=== PATIENT | female | born 2000 | race Two or more races ===

== ENCOUNTER 2020-02-03 12:24 | Outpatient (CLI) | payer OTHER, SELFPAY ==
[2020-02-03 13:48] LABS: Thyroid Stimulating Hormone 0.693 uIU/mL (0.465-4.680)
[2020-02-03 13:56] LABS: Free T4 Free Thyroxine 1.05 ng/mL (0.78-2.19)
[2020-02-06 13:34] LABS: FSH 7.4 mIU/mL (***); LH 5.6 mIU/mL (***); Progesterone <0.2 ng/mL (***)
== END 2020-02-03 12:25 | disposition home or self-care (01) ==
PROVIDERS: PCP Family Medicine; Visit Provider Obstetrics & Gynecology
DX: N92.6 Irregular menstruation, unspecified (principal)
CPT/HCPCS: 36415; 83001; 83002; 84144; 84439; 84443

== ENCOUNTER 2020-02-10 14:00 | Outpatient (CLI) | payer OTHER, SELFPAY ==
--- NOTE | ~2020-02-10 | US_ITS ---
EXAMINATION: US pelvic complete w TV DATE: 02/10/2020 15:08 INDICATION: Irregular menstrual cycle. Comparison:No prior studies for comparison. TECHNIQUE: Multiple transabdominal and endovaginal sonographic images of the pelvis performed. FINDINGS: The uterus measures 7.5 x 4.3 x 5.6 cm. The endometrial complex measures 7 mm. The right ovary measures 3.4 x 2.3 x 2 cm and the left ovary measures 2.5 x 1.6 x 1.2 cm. There are small follicles in each ovary. There are right ovarian cysts, largest measuring 2 cm. There is no free fluid in the pelvis. There are no abnormal masses seen on either side. IMPRESSION: 1. Right ovarian cysts, largest measuring 2 cm. Reviewed, dictated and finalized at location A.
== END 2020-02-10 14:01 | disposition home or self-care (01) ==
PROVIDERS: PCP Family Medicine; Visit Provider Obstetrics & Gynecology
DX: N92.6 Irregular menstruation, unspecified (principal); N83.201 Unspecified ovarian cyst, right side
CPT/HCPCS: 76830; 76856

== ENCOUNTER 2020-08-30 14:44 | Outpatient (CLI) | payer OTHER, SELFPAY ==
--- NOTE | ~2020-08-30 | US_ITS ---
EXAMINATION: US OB <= 14 weeks fetus DATE: 08/30/2020 15:12 INDICATION: Acid heart tones during first trimester TECHNIQUE: Real-time pelvic transabdominal and transvaginal ultrasound was performed. COMPARISON: 08/10/2020 FINDINGS: The uterus measures 10.2 x 7.9 x 6.3 cm. There is an intrauterine gestational sac. A yolk sac is identified. heart motion is identified measuring 171 beats per minute (bpm) by M-mode Do ppler. The crown rump length measures 3.9 cm , which correlates with an estimated gestational a ge of 10 weeks and 6 day(s) (+/-) 7 day(s). The ovaries are not visualized however no adnexal abnormality is seen. There is no free fluid in the pelvis. IMPRESSION: 1. Live intrauterine with an estimated gestational age of 10 weeks and 6 day(s) (+/-) 7 day (s) and an estimated delivery date of 03/22/2021. Reviewed, dictated and finalized at location A. IMPRESSION: 1. Live intrauterine with an estimated gestational age of 10 weeks an d 6 day(s) (+/-) 7 day(s) and an estimated delivery date of 03/22/2021.
[2020-08-30 15:47] LABS: Basophils Percent Auto 0.3 % (0.2-1.2); Eosinophils Absolute Auto 0.1 K/mm3 (0-0.3); Eosinophils Percent Auto 2.2 % (0-4.4); Hemoglobin 12.8 g/dL (12.0-15.0); Immature Granulocyte Absolute 0.02 K/mm3 (0.00-0.031); Immature Granulocyte Percent A 0.3 % (0-0.5); Lymphocytes Absolute Auto 2.45 K/mm3 (0.9-3.2); Lymphocytes Percent Auto 37.8 % (18.3-44.2); Mean Corpuscular HGB Conc 34.6 g/dl (32-36); Mean Corpuscular Hemoglobin 31.3 pg (26-34); Mean Corpuscular Volume 90.5 fl (80-100); Mean Platelet Volume 10.7 fl (7.4-10.4); Monocytes Absolute Auto 0.4 K/mm3 (0.1-0.6); Neutrophils Absolute Auto 3.5 K/mm3 (1.3-6.7); Neutrophils Percent Auto 53.4 % (45.5-73.1); Platelet Count Result 173 k/mm3 (150-375); Red Blood Count 4.09 M/mm3 (4.2-5.4); Red Cell Distribution Width 13.4 % (11.5-14.5); White Blood Count 6.5 K/mm3 (4.5-10.0)
[2020-08-30 15:59] LABS: Add Urine Microscopic? YES; Appearance Urine Clear (Clear); Bacteria Urine Trace /hpf; Bilirubin Urine Negative (Negative); Blood Urine Negative (Negative); Color Urine Yellow (Yellow); Glucose Urine UA Negative (Negative); Ketones Urine Negative (Negative); Leukocyte Esterase Ur Negative LEU/UL (NEGATIVE); Mucus Urine Rare /lpf; Nitrate Urine Negative (Negative); Protein Urine 1+ mg/dL (Negative); RBC Urine 0-2 /hpf (0-2); Specific Grav Ur 1.019 (1.001-1.035); Squamous Epithelial Cell Urine Moderate /hpf (Few); Urobilinogen Urine Negative mg/dL (<2.0); WBC Urine 0-3 /hpf (0-3)
[2020-08-30 16:27] LABS: Thyroid Stimulating Hormone 0.602 uIU/mL (0.465-4.680)
[2020-08-30 18:49] LABS: Vitamin D 25 Hydroxy 14.2 ng/mL
[2020-08-30 19:13] LABS: Hepatitis B Surface Antigen Negative (Negative)
[2020-08-30 19:16] LABS: HIV 1/2 Ab P24 Ag Result Negative (Negative)
[2020-08-30 19:26] LABS: Hepatitis C Virus Antibody Negative (Negative)
[2020-08-30 19:36] LABS: Rubella IgG Antibody > 120.0 IU/ML
[2020-08-31 10:35] LABS: Rapid Plasma Reagin Non-Reactive (NonReactive)
[2020-09-01 21:38] LABS: Hematocrit 37.4 % (35.0-45.0); Hemoglobin 12.8 g/dL (11.7-15.5); MCH 31.9 pg (27.0-33.0); RDW 14.7 % (11.0-15.0); Red Blood Cell Count 4.02 Mill/uL (3.80-5.10)
[2020-09-02 12:20] LABS: Varicella IgG Antibody <135.00 Index (>=165.00)
[2020-09-06 18:29] LABS: CF Result NEGATIVE (NEGATIVE); Ethnicity NG
== END 2020-08-30 14:45 | disposition home or self-care (01) ==
LOC: ANHIMG 14:47
PROVIDERS: PCP Family Medicine; Visit Provider Obstetrics & Gynecology
DX: O26.851 Spotting complicating pregnancy, first trimester (principal); O20.0 Threatened abortion; Z3A.10 10 weeks gestation of pregnancy
CPT/HCPCS: 36415; 76801; 81001; 81220; 81243; 82306; 83021; 84443; 85025; 86592; 86703; 86762; 86787; 86803; 86850; 86900; 86901; 87086; 87088; 87340; G0432

== ENCOUNTER 2020-09-24 12:30 | Outpatient (RCR) | payer OTHER, SELFPAY ==
--- NOTE | 2020-09-16 13:43 | PTOPEVAL ---
PHYSICAL THERAPY EVALUATION AND PLAN OF CARE Thank you for referring Emerita Mcintosh to [facility].? The patient is scheduled to be seen for therapy? 1x/week for 3 weeks. Please review, sign, date and return this plan of care TD. I agree with and certify that the following plan of care is medically necessary. Referring Physician Date Attending Provider: Mk Quick MD Evaluation Diagnosis back pain with sciatica Onset 2015 Subjective Information States that she has been Query Text:As Reported By Patient/ having back problems since Family having her first child in 2016 after the epidural. She has back pain that starts from where the epidural was and then goes down the right let with occasional episodes down the left leg. Was initially going to get x-rays, but found out she is and was not able to get the tests. Self Report Pain Assessment Right Back Reported Pain Level 4 Pain Description Aching Pain Frequency Chronic,Intermittent Lowest Pain Intensity 0 Greatest Pain Intensity 7 Other Pain Aggravating Factors waking/getting out of bed; cold/bad weather Pain Score Pain Score 4: Self Report Interventions Used Interventions Used By Clinicians Exercise Pain Relief Interventions Used By Heat,Ice,Medication Patient Cervical and Lumbar ROM Lumbar ROM Lumbar Flexion (0-90) 55 Query Text:Active in Degrees Lateral Rotation Right (0-45) 20 Query Text:Active in Degrees Lateral Rotation Left (0-45) 20 Query Text:Active in Degrees Lumbar Comments abberent movements noted with all motions; lumbar extension hinging at L2 with minimal motion noted from L2-S1 Lower Extremity Range of Motion General Lower Extremity Range of Motion Gross Lower Extremity Range of Motion generally WNL; right hip IR: Comments 75deg, Ext. rot: 25 left hip IR: 65deg, ext. rot. 35 Lower Extremity Muscle Strength Testing Hip Strength Left Hip Flexion Strength 4- Good - Hip Extension Strength 3- Fair - Hip Abduction Strength 4- Good - Hip Medial Rotation Strength 3+ Fair + Hip Lateral Rotation Strength 3+ Fair + Right Hip Flexion Strength 3 Fair Hip Extension Strength 3 Fair Hip Abduction Strength
--- NOTE | 2020-09-24 12:34 | PCPTNOTE ---
Patient called & cancelled scheduled appointment this date due to not feeling well.
--- NOTE | 2020-10-01 12:53 | PCPTNOTE ---
Patient did not show up for scheduled appointment this date. Called, spoke with Pt, she stated to have forgotten about her appointment. Reminded Pt of upcoming appointment on 10/07/20 @16:30.
--- NOTE | 2020-10-07 17:00 | PCPTNOTE ---
Patient did not show up for scheduled appointment this date.
--- NOTE | 2020-10-13 10:40 | PCPTNOTE ---
PHYSICAL THERAPY DISCHARGE Attending Provider: Mk Quick MD Patient:Emerita Mcintosh Date of :2000 Patient has not returned for any further treatments since 09/16/20, therefore she will be discharged at this time. Patient?s initial visit was on 09/16/2020 and had a total of 1 visit (the evaluation). She no showed 3 appointments. Thank you for referring this patient to [facility]. Please review, sign, date and return this discharge summary TD. I have been updated about the patient's current status and I agree with discharge from the above service at this time. Referring Physician Date
== END 2020-10-14 17:13 | disposition home or self-care (01) ==
LOC: ANHPT 12:30
PROVIDERS: PCP Family Medicine; Visit Provider Obstetrics & Gynecology
DX: M54.30 Sciatica, unspecified side (principal)
CPT/HCPCS: 97161

== ENCOUNTER 2020-12-27 12:52 | Outpatient (CLI) | payer OTHER, SELFPAY ==
[2020-12-27 14:10] LABS: Basophils Percent Auto 0.2 % (0.2-1.2); Eosinophils Absolute Auto 0.2 K/mm3 (0-0.3); Eosinophils Percent Auto 2.2 % (0-4.4); Hematocrit 32.7 % (37.0-47.0); Immature Granulocyte Absolute 0.06 K/mm3 (0.00-0.031); Immature Granulocyte Percent A 0.7 % (0-0.5); Lymphocytes Absolute Auto 2.24 K/mm3 (0.9-3.2); Lymphocytes Percent Auto 27.3 % (18.3-44.2); Mean Corpuscular HGB Conc 33.6 g/dl (32-36); Mean Corpuscular Hemoglobin 31.3 pg (26-34); Mean Corpuscular Volume 92.9 fl (80-100); Mean Platelet Volume 10.3 fl (7.4-10.4); Monocytes Absolute Auto 0.5 K/mm3 (0.1-0.6); Neutrophils Absolute Auto 5.2 K/mm3 (1.3-6.7); Neutrophils Percent Auto 63.6 % (45.5-73.1); Platelet Count Result 170 k/mm3 (150-375); Red Blood Count 3.52 M/mm3 (4.2-5.4); Red Cell Distribution Width 12.5 % (11.5-14.5); White Blood Count 8.2 K/mm3 (4.5-10.0)
[2020-12-27 14:18] LABS: Glucose 1 Hour PP 50gm Dose 106 mg/dL
== END 2020-12-27 12:53 | disposition home or self-care (01) ==
LOC: ANHLAB 12:55
PROVIDERS: PCP Family Medicine; Visit Provider Obstetrics & Gynecology
DX: Z34.90 Encounter for supervision of normal pregnancy, unspecified, unspecified trimester (principal)
CPT/HCPCS: 36415; 82947; 85025

== ENCOUNTER 2021-01-27 14:31 | Outpatient (CLI) | payer OTHER, SELFPAY ==
[2021-01-27 14:55] LABS: Basophils Percent Auto 0.2 % (0.2-1.2); Eosinophils Absolute Auto 0.2 K/mm3 (0-0.3); Eosinophils Percent Auto 1.8 % (0-4.4); Hematocrit 31.4 % (37.0-47.0); Hemoglobin 10.5 g/dL (12.0-15.0); Immature Granulocyte Absolute 0.09 K/mm3 (0.00-0.031); Immature Granulocyte Percent A 0.9 % (0-0.5); Lymphocytes Absolute Auto 2.61 K/mm3 (0.9-3.2); Lymphocytes Percent Auto 26.8 % (18.3-44.2); Mean Corpuscular HGB Conc 33.4 g/dl (32-36); Mean Corpuscular Hemoglobin 30.9 pg (26-34); Mean Corpuscular Volume 92.4 fl (80-100); Mean Platelet Volume 10.9 fl (7.4-10.4); Monocytes Absolute Auto 0.7 K/mm3 (0.1-0.6); Monocytes Percent Auto 6.7 % (2.6-8.5); Neutrophils Absolute Auto 6.2 K/mm3 (1.3-6.7); Neutrophils Percent Auto 63.6 % (45.5-73.1); Platelet Count Result 166 k/mm3 (150-375); Red Cell Distribution Width 13.2 % (11.5-14.5); White Blood Count 9.7 K/mm3 (4.5-10.0)
[2021-01-27 16:02] LABS: HIV 1/2 Ab P24 Ag Result Negative (Negative)
[2021-01-28 11:52] LABS: Rapid Plasma Reagin Non-Reactive (NonReactive)
== END 2021-01-27 14:32 | disposition home or self-care (01) ==
PROVIDERS: PCP Family Medicine; Visit Provider Obstetrics & Gynecology
DX: Z34.90 Encounter for supervision of normal pregnancy, unspecified, unspecified trimester (principal)
CPT/HCPCS: 36415; 85025; 86592; 86703; G0432

== ENCOUNTER 2021-02-18 12:49 | Outpatient (RCR) | payer OTHER, SELFPAY ==
[2021-02-11 15:59] VITALS: BP 102/61; PULSE 95
--- NOTE | ~2021-02-18 | US_ITS ---
EXAMINATION: US OB limited EXAM DATE: 02/11/2021 16:02 INDICATION: LUIS - hx of abruption with last 3rd trimester. TECHNIQUE: Pelvic obstetrical transabdominal sonogram was performed by a technologist. There are mu ltiple grayscale and Doppler images available for interpretation. There are no earlier studies of th is gestation for comparison. FINDINGS: There is a single fetus identified in vertex presentation with a heart rate of 134 beats pe r minute. The placenta is located in the right position. There is no sonographic evidence of retropl acental hemorrhage identified. The amniotic fluid index is 10.1 centimeters, which is normal. IMPRESSION: 1. Single fetus in vertex presentation with heart rate 134 beats per minute. 2. Normal LUIS 10.0 cm. Reviewed, dictated and finalized at location A.
[2021-02-18 14:06] VITALS: BP 100/59; PULSE 97
== END 2021-04-28 09:26 | disposition home or self-care (01) ==
LOC: ANHOBOP 12:49
PROVIDERS: PCP Family Medicine; Visit Provider Student in an Organized Health Care Education/Training Program
DX: O09.293 Supervision of pregnancy with other poor reproductive or obstetric history, third trimester (principal); Z3A.33 33 weeks gestation of pregnancy; Z3A.34 34 weeks gestation of pregnancy
CPT/HCPCS: 59025; 76815

== ENCOUNTER 2021-03-18 03:44 | Inpatient (IN) | payer OTHER, SELFPAY ==
[2021-03-18] VITALS (15 sets, daily range): BP systolic 89–116; BP diastolic 41–74; PULSE 82–132; RESP 16–18; TEMP 36.4–36.6; O2SAT 98–100; BMI 28.6
--- NOTE | 2021-03-18 04:00 | LDADM ---
This patient, Emerita Mcintosh, was admitted to Labor/Delivery/Recovery 106 on 03/18/21 at 03:44. Plans for labor, pain management and were discussed with patient. Patient/family oriented to hospital policies and general routines including ID bracelet, bed and alarms, visiting hours, pain management, procedures, bathroom and other care routines, personal items, smoking policy, room service/diet and guest tray routines, infant security routines, and visiting hours. Patient/Family are encouraged to report perceived risks to care and to ask questions if they do not understand what they are told or what they should do. See OBIX for further documentation.
[2021-03-18 04:42] LABS: Basophils Percent Auto 0.2 % (0.2-1.2); Eosinophils Absolute Auto 0.1 K/mm3 (0-0.3); Eosinophils Percent Auto 0.6 % (0-4.4); Hematocrit 31.3 % (37.0-47.0); Hemoglobin 10.5 g/dL (12.0-15.0); Immature Granulocyte Absolute 0.05 K/mm3 (0.00-0.031); Immature Granulocyte Percent A 0.4 % (0-0.5); Lymphocytes Absolute Auto 2.77 K/mm3 (0.9-3.2); Lymphocytes Percent Auto 22.3 % (18.3-44.2); Mean Corpuscular HGB Conc 33.5 g/dl (32-36); Mean Corpuscular Hemoglobin 29.6 pg (26-34); Mean Corpuscular Volume 88.2 fl (80-100); Mean Platelet Volume 11.3 fl (7.4-10.4); Monocytes Percent Auto 8.4 % (2.6-8.5); Neutrophils Absolute Auto 8.5 K/mm3 (1.3-6.7); Neutrophils Percent Auto 68.1 % (45.5-73.1); Platelet Count Result 209 k/mm3 (150-375); Red Blood Count 3.55 M/mm3 (4.2-5.4); White Blood Count 12.4 K/mm3 (4.5-10.0)
--- NOTE | 2021-03-18 04:49 | PM.IMHP ---
H&P: HPI History of Present Illness Date/Time: 03/18/21 04:49 She is a with an edc 03/28/21 based on a 7 week ultrasound. IUP at 38 4/7 weeks admitted in active labor. She had SROM at approximately 330. Clear. When she arrived to [facility] she was actively liseth and . PNC significant for prior c section and prior successful . She desires CARLOS. Has been counseled regarding risk benefit of CARLOS vs repeat and she desires trial of labor. PNC significant for recent ultrasound finding of a redundant atrial septum which is a foramen ovale aneurysm. There was an occasional PAC noted, which is common. She has been counseled by MFM regarding finding and they recommended weekly testing and targeted ultrasound which testing has been reassuring. Adequate growth noted. Labs reviewed. GBS neg. Chief Complaint: Active labor. Review of Systems Review of Systems: All systems reviewed & are unremarkable except as noted in HPI and below Constitutional: Constitutional: Reports no additional constitutional complaints and Denies headache(s) Eyes: Eyes: Denies spots in vision ENT: Reports system reviewed and no additional complaints, except as documented and Denies headache(s) Cardiovascular: Cardiovascular: Denies chest pain and Denies dyspnea Respiratory: Respiratory: Denies dyspnea Gastrointestinal: Gastrointestinal: Reports no additional gastrointestinal complaints Genitourinary: Genitourinary: Reports amenorrhea Musculoskeletal: Musculoskeletal: Reports no additional musculoskeletal complaints Integumentary/Breasts: Skin/Breast: Denies breast mass and Denies rash Neurologic: Denies headache(s) Psychiatric: Psychiatric: Reports no additional psychiatric complaints [facility] Past Medical History Medical History Chlamydia Depression (vaginal after ) x1 Surgical History Surgical History Hx of tonsillectomy Previous section x1 [place] teeth removed Family History Family History Grandparent Family history of malignant neoplasm of ovary Family history of malignant neoplasm of breast Family history of malignant neoplasm of uterus Agent orange exposure Mother Endometriosis Father Scoliosis Social History Social History (Reviewed 12/02/21 @ 14:43 by ELVI Bah Smoking status: Never smoker Second hand tobacco smoke exposure: No Alcohol intake: never Substance use: never Substance use type: marijuana Spiritual care concerns: No Meds Home Medications and Allergies Home Medications Medication Instructions Recorded Confirmed Type prenat.vits,lenny,[id number] 1 tablet PO DAILY 08/30/20 03/04/21 History ferrous sulfate 325 mg (65 mg 325 mg PO DAILY #90 tablet 12/31/20 03/04/21 Rx iron) tablet Allergies Allergy/AdvReac Type Severity Reaction Status Date / Time No Known Allergies Allergy Verified 03/17/21 14:43 Exam Const: General: no acute distress Eyes: General: appearance normal, both eyes and all related structures Resp: Effort & Inspection: normal respiratory effort Cardio: Rate: regular rate GI: Other: Gravid no fundal tenderness no right upper quadrant pain : External Female Exam: normal external appearance Other: perineum normal cervix 6/80/-2 Skin: General skin exam: no rashes or lesions noted Neuro: Cognition (Neuro): normal cognition Extrem: General: normal to inspection Psych: Mental Status: mental status grossly normal H&P: Results Labs Labs: Short CBC 03/18/21 Range/Units 04:18 WBC 12.4 H (4.5-10.0) K/mm3 Hgb 10.5 L (12.0-15.0) g/dL Hct 31.3 L (37.0-47.0) % Plt Count 209 (150-375) k/mm3 Assessment and Plan Assessment and plan (1) Active labor at term: Statu
--- NOTE | 2021-03-18 05:41 | PM.OBPRVD ---
OB - Delivery Note Procedure Delivery date: 03/18/21 Procedure: Spontaneous vaginal delivery events: Previous Intrapartal events: None Induction method: none Delivery monitor: external FHT Route of delivery: Laceration Description: Superficial (superficial right labia minora, hemostatic no suture needed) Specimen: Yes (Placenta and cord) Quantitative Blood Loss (ml): 150 Anesthesia type: None Disposition: floor Complications: None Narrative: Patient admitted in active labor. She progressed spontaneously. heart tones were 130-140s, they were intermittently recorded on strip with her being in the hand knee and squatting position most of the labor. She had strong urge to push and delivered a female . Mouth and nose suctioned. Infant vigorously crying and placed on maternal abdomen. Cord was doubly clamped and cut. Placenta delivered intact and spontaneous. Small superior labia minora tear, hemostatic, no suture needed. Lower uterine segment cleared of clot, palpated intact. Patient tolerated procedure well. Baby Date of : 03/18/21 Time of : 05:18 Weeks of gestation at delivery: 38 Infant gender: Female Weight (pounds): 7 Weight (ounces): 2 presentation: vertex position: Right Occiput Anterior Placenta delivery description: Spontaneous cord vessel description: Delayed Cord Clamping (30 sec) score one minute: 8 score five minutes: 9
[2021-03-18] MEDS: IBUPROFEN 600 MG TABLET PO ×3 (06:20→21:21)
[2021-03-18 06:38] LABS: Rapid Plasma Reagin Non-Reactive (NonReactive)
[2021-03-18] MEDS: BENZOCAINE 20% AER SPR (*SP) 56 GM CAN 1 SPRAY TOPICAL (09:02)
[2021-03-18] MEDS: WITCH HAZEL 40 PADS 1 PAD TOPICAL (09:02)
--- NOTE | 2021-03-18 09:55 | OBPPTRN ---
0930-Patient transferred to post room #286 via wheelchair. Support person present. Oriented to unit, room, information board, rooming in, admission packet and security measures. Patient verbalizes understanding.
--- NOTE | 2021-03-18 11:30 | PC.NURSE ---
Consult with pt., mother reports is eagerly feeding with without issue. This is mother?s 3rd child to breastfeed. Requested mother call out next feeding for observation per policy. Reviewed feeding cues, frequencies, duration of feedings, feeding elimination flow sheet, and signs of adequate intake. Demonstrated stimulation techniques to wake for feeding. Reviewed signs of a correct latch, effective nursing and suck swallow ratio. Nipple care reviewed of lanolin after feedings and warm compresses as needed. Instructed feeding should be initiated three hours from start of last feeding or if feeding cues are noted before. Mother voiced understanding of information shared.
[2021-03-18] MEDS: MULTIVIT/MIN/PREN/FOL AC/IRON TABLET 1 TAB PO (12:41)
[2021-03-18] MEDS: ACETAMINOPHEN 325 MG TABLET 650 MG PO (17:46)
[2021-03-19 00:33] VITALS: BP 98/56; PULSE 80; RESP 16; TEMP 36.6; O2SAT 98
[2021-03-19 04:00] VITALS: BP 86/49; PULSE 80; RESP 16; TEMP 36.4; O2SAT 97
[2021-03-19] MEDS: WITCH HAZEL 40 PADS 1 PAD TOPICAL (04:15)
[2021-03-19] MEDS: IBUPROFEN 600 MG TABLET PO (04:15)
[2021-03-19 04:50] LABS: Hematocrit 28.5 % (37.0-47.0); Hemoglobin 9.6 g/dL (12.0-15.0)
--- NOTE | 2021-03-19 09:49 | P.PNOB_ITS ---
OB - PN: Subj Subjective Date/time seen: 03/19/21 09:49 No dizziness or lightheadedness, ambulating well. Patient comments: pain well controlled, tolerating diet and other (Decreasing lochia.) baby status: doing well and nursing well [place] feeding status: exclusively breast feeding OB - PN: Obj Data Labs CBC & Chem 7: 03/19/21 04:02 Labs: Laboratory Results - last 24 hr 03/19/21 04:02 Hgb 9.6 L Hct 28.5 L OB - PN A/P Plan day: 1 Plan: routine care Comments: Patient doing well. Asymptomatic anemia. Discharge home today. Discussed discharge instructions. Time Spent With Patient Time: Total time spent is greater than 50% in coordination of care (as documented) at patient's floor/unit and/or counseling patient: Exam Psych: Affect: normal affect Other: Abd: fundus firm below umbilicus, nontender labia/perineum- no swelling Ext: nontender
[2021-03-19 09:50] VITALS: BP 111/63; PULSE 88; RESP 12; TEMP 36.2; O2SAT 100
[2021-03-19] MEDS: POLYSACCHARIDE IRON COMPLEX 150 MG CAPSULE PO (09:50)
[2021-03-19] MEDS: ACETAMINOPHEN 325 MG TABLET 650 MG PO (09:50)
[2021-03-19] MEDS: MULTIVIT/MIN/PREN/FOL AC/IRON TABLET 1 TAB PO (09:50)
[2021-03-19] MEDS: DOCUSATE SODIUM 100 MG CAPSULE PO (09:50)
--- NOTE | 2021-03-19 09:52 | PM.OBDSVD ---
DS: Admitting Diagnosis Discharge Date Mar 19, 2021. Admitting Diagnosis Labor. DS: Discharge Diagnosis Discharge Diagnosis (1) Active labor at term: Status: Acute (2) , delivered, current hospitalization: Code(s): O34.219 - Maternal care for unspecified type scar from previous delivery Status: Acute OB - DS: Summary Hospital Course Hospital Course: Patient admitted in active labor. She progressed to complete. She had a successful . she did well. Ambulating without problems, adequate pain control, tolerating regular diet. Asymptomatic anemia. Baby doing well. well. OB Procedures : NST and Ultrasound OB Procedures Intrapartum: OB Procedures: : None Peripartum Data Infant Delivery Method: Natural Vaginal () Laceration Description: Labial and Superficial Episiotomy description: None complications: none Status at Discharge Functional status at discharge: independent ambulation Time Spent with Patient Time attestation: Total time spent providing and/or coordinating discharge services: Exam Const: General: cooperative Orientation/consciousness: oriented to person, oriented to place and oriented to time HENMT: General nose exam: Normal external nose present Eyes: General: appearance normal, both eyes and all related structures Resp: Effort & Inspection: normal respiratory effort GI: Inspection: normal to inspection : Other: perineum labia normal Skin: General skin exam: normal color Neuro: General: oriented to person, oriented to place and oriented to time Extrem: General: normal to inspection and no calf tenderness Psych: Appearance: grossly normal Mental Status: mental status grossly normal DS: Data Data Completed and Pending Pending studies at discharge: Pending at discharge 03/18/21 05:32 Surgical [PTH] Routine Labs on day of discharge: Labs from last 24 hours 03/19/21 04:02 Hgb 9.6 L Hct 28.5 L Discharge Plan Discharge Attending physician on discharge: Mk Quick Discharging Clinician: Mk Quick Anticipated Discharge Date/Time: 03/19/21 09:55 Patient Disposition: Home, Self-Care Activity: may shower, no straining and pelvic rest Diet: regular Discharge Instructions: Pelvic rest for 4-6 weeks. May take over the counter Ibuprofen or Tylenol for pain. Call if saturating more than a pad an hour, leg redness, pain and swelling, temperature>100.4. No strenuous activity. Take daily PNV and daily iron supplement. Patient Instructions: Antibiotic Form Stand Alone Forms: General Discharge Information Follow-up/Referrals: Mk Quick MD [Physician] - 4 Weeks Discharge Medications: No Action prenat.vits,lenny,[id number] Tablet 1 tablet PO DAILY RF: 0 ferrous sulfate 325 mg (65 mg iron) tablet 325 mg PO DAILY Qty: 90 RF: 0 Date of admission: 03/18/21 03:44 Primary Care Provider: Peña[place] Admitting Provider: Mk Quick Attending physician on admission: Mk Quick Condition: Stable
[2021-03-19] MEDS: TETANUS,DIPHTHERIA,AC PERTUSSIS ADULT (0.5 ML) BOOSTRIX IM (14:05)
--- NOTE | 2021-03-19 15:25 | PC.NURSE ---
1030 Patient viewed the discharge video Mother & Baby Care, The First Two Weeks . Patient was given the opportunity and encouraged to ask questions. Patient verbalized understanding of information shared and has been given the mother/baby guide for home reference.
[2021-03-21 08:37] VITALS: BP 113/70; PULSE 88; RESP 20; TEMP 37; O2SAT 100
== END 2021-03-19 15:10 | disposition home or self-care (01) | DRG 560 ==
LOC: ANHLDR 04:02 → ANHOB2 09:23
PROVIDERS: Admitting Provider Obstetrics & Gynecology; PCP Family Medicine; Visit Provider Obstetrics & Gynecology
DX: O34.219 Maternal care for unspecified type scar from previous cesarean delivery (principal); O70.0 First degree perineal laceration during delivery; O62.3 Precipitate labor; Z3A.38 38 weeks gestation of pregnancy; Z37.0 Single live birth; O36.8930 Maternal care for other specified fetal problems, third trimester, not applicable or unspecified
CPT/HCPCS: 36415; 85014; 85018; 85025; 86592; 86850; 86900; 86901; 88307; 90715; A9270

== ENCOUNTER 2021-08-29 14:53 | Emergency (ER) | payer OTHER, SELFPAY ==
[2021-08-29 14:59] VITALS: BP 102/64; PULSE 79; RESP 20; TEMP 37; O2SAT 100
--- NOTE | 2021-08-29 15:14 | ED.URI ---
HPI - URI/Sore Throat General Chief Complaint: Upper Respiratory Infection Stated Complaint: no appetite cough fever achey Time Seen by Provider: 08/29/21 15:18 Source: patient and RN notes reviewed Mode of arrival: ambulatory Limitations: no limitations History of Present Illness HPI Narrative: 21-year-old female presents with concern for 2-day history of cough, body aches, backache, headache, nasal drainage sweats. Reports her daughter has similar symptoms. Reports she took Tylenol. She denies shortness of breath, chills, nausea, vomiting, diarrhea MD elicited complaint: cough Related Data Home Medications Medication Instructions Recorded Confirmed prenat.vits,lenny,yfu-uyyo-[id number] 1 tablet PO DAILY 08/30/20 08/29/21 Allergies Allergy/AdvReac Type Severity Reaction Status Date / Time No Known Allergies Allergy Verified 08/29/21 15:05 Review of Systems Review of Systems: CONSTITUTIONAL: Reports malaise, sweats, tach fever. EYES: Denies visual changes, redness, or discharge. ENT: Reports rhinorrhea, congestion. Denies sinus pain, otalgia and sore throat. CARDIOVASCULAR: Denies chest pain, palpitations, or edema. RESPIRATORY: Reports cough. Denies dyspnea. GASTROINTESTINAL: Denies abdominal pain, nausea, vomiting, diarrhea SKIN: Denies rash or itching. MUSCULOSKELETAL: Reports myalgia. NEUROLOGIC: Reports headache. All systems reviewed & are unremarkable except as noted in HPI and below PMFSH Past Medical History Medical History Chlamydia Depression (vaginal after ) x1 Surgical History Surgical History Hx of tonsillectomy Previous section x1 [place] teeth removed Family History Family History Grandparent Family history of malignant neoplasm of ovary Family history of malignant neoplasm of breast Family history of malignant neoplasm of uterus Agent orange exposure Mother Endometriosis Father Scoliosis Social History Social History Smoking status: Never smoker Second hand tobacco smoke exposure: No Alcohol intake: never Substance use: never Substance use type: marijuana Spiritual care concerns: No Comments At time of signature, agree with nursing past medical, surgical, social and family history. There is no relevant family history pertinent to the presenting complaint Exam Narrative: GENERAL: Well-appearing, well-nourished, and in no acute distress. HEAD: Normocephalic EYES: PERRLA, conjunctivae clear ENT: Nares clear, turbinates edematous and erythematous, clear discharge. Mucous membranes moist. TM pearly mckinney with dull light reflex bilaterally; no tragal tenderness. Oropharynx not erythematous without lesions. Tonsils not enlarged and without exudate, no drooling, no hoarseness, no trismus, uvula midline. NECK: Supple. No lymphadenopathy CHEST: Clear to auscultation, breath sounds equal. No wheezing, rhonchi, rales, or stridor. No respiratory distress, speaks in full sentences. HEART: Regular rate and rhythm. No murmur heard. SKIN: Warm, dry, no rash. NEURO: Alert and oriented x3. PSYCH: Normal mood and affect Course Course Emergency Course: Patient is aware of diagnosis, understands and agrees to treatment plan. Anticipatory guidance given. Patient agrees to follow-up as directed and is aware of reasons to seek care at the emergency department. Portions of this record may have been created with voice recognition software Level of Care: Express Care Visit Vital Signs Vital signs: Vital Signs Temperature 98.6 F 08/29/21 14:59 Pulse Rate 79 08/29/21 14:59 Respiratory Rate 20 08/29/21 14:59 Blood Pressure 102/64 08/29/21 14:59 Pulse Oximetry 100 08/29/21 14:59 Temperature 98.6 F 08/29/21 14:59 Pulse
== END 2021-08-29 15:44 | disposition home or self-care (01) ==
PROVIDERS: Emergency Provider Nurse Practitioner; PCP Family Medicine
DX: B34.9 Viral infection, unspecified (principal); Z20.822 Contact with and (suspected) exposure to COVID-19
CPT/HCPCS: 87426; 87804; 99213; C9803; G0463

== ENCOUNTER 2021-11-02 01:19 | Day surgery (SDC) | payer OTHER, SELFPAY ==
[2021-10-25 14:29] VITALS: BMI 23.3
--- NOTE | 2021-10-25 14:43 | PC.NURSE ---
Report to the Outpatient Waiting Room, entrance under the green pavilion located off [facility], at time 0730 on date 11/02/2021. OR Time: 0930. - You and your visitor will be asked a series of questions to screen for COVID 19 for your protection. - Only one visitor is allowed at this time. - The patient visitor is requested to leave or wait in car when not with patient. - A mask is required within the hospital. Patients may have clear liquids (water, carbonated beverages, clear teas, apple juice) until 3 hours prior to surgery with a maximum of 20 ounces. - No food from midnight until time of surgery. Take the following medications with a SIP of water the morning of surgery: Acetaminophen if needed Medications to discontinue per physician: vitamins 3 days Date to take last dose 3 days prior to surgery Please no make-up, nail dutch, hairproducts , deodorant, or body lotion/powder the day of surgery. No jewelry (including any body piercings) or valuables the day of surgery, leave them at home. Please take a shower or bath the night before, or the morning of, surgery with an antibacterial soap. Wear comfortable, loose fitting clothing. - Jewelry must be removed prior to entering the operating room. Rings and piercings that are not removed may be cut off. - The hospital will not accept responsibility for valuables. - Please leave all valuables, including medications, at home the day of surgery. If you are going home after surgery, a licensed tilt tray driver must drive you home. - NO public transportation without another adult. - We recommend that an adult stay with you for 24 hours following discharge. - We also recommend that you do not drive, make important decision, drink alcoholic beverages, or take any drugs that were not prescribed by your health care provider for at least 24 hours after your discharge time. Follow any additional instructions given to you from your surgeon. If you or anyone in your household have experienced Covid symptoms in the past week, please notify your surgeon or the nurse liaison at the phone number below for possible testing. Telephone instructions given to _patient_and asked if any additional questions and then verbalized understanding. Patient advised to call surgeon office or pre surgery nurse liaison [phone] if any additional questions.
--- NOTE | 2021-11-01 15:00 | WPDANESEPPF ---
Anes - Initial Pre Proc Eval Procedure: Operation Date: 11/02/21 09:30 Proposed Procedures p Laparoscopic Bilateral Tubal Ligation with Cauterization - Mk Quick MD Date/Time: 11/01/21 15:00 Surgeon: Mk Quick MD Pre Op Diagnosis: desires sterilization Patient Data Age: 21 Gender: F Height: 1.57 m Weight: 58.06 kg Allergies Allergy/AdvReac Type Severity Reaction Status Date / Time No Known Allergies Allergy Verified 11/02/21 07:46 Home Medications Medication Instructions Recorded Confirmed Type prenat.vits,lenny,iqf-[id number] 1 tablet PO DAILY 08/30/20 11/02/21 History acetaminophen 500 mg tablet 500 mg PO Q6H PRN Pain 10/25/21 11/02/21 History (Acetaminophen Extra Strength) Patient hx anesthesia problems: none Family hx anesthesia problems: none Results Review: All pre-operative results and documents have been reviewed as part of the pre-operative evaluation. PMFSH Past Medical History Medical History Chlamydia Depression (vaginal after ) x1 Surgical History Surgical History Hx of tonsillectomy Previous section x1 [place] teeth removed Family History Family History Grandparent Family history of malignant neoplasm of ovary Family history of malignant neoplasm of breast Family history of malignant neoplasm of uterus Agent orange exposure Mother Endometriosis Father Scoliosis Social History Social History Smoking status: Never smoker Second hand tobacco smoke exposure: Yes (MOM) Alcohol intake: former Substance use: former Substance use type: marijuana Last use: 1 YR AGO Living arrangements: with family Spiritual care concerns: No Anes - Eval Final PreProcedure Day of Procedure 11/01/21 15:00 Patient weight: normal Heart: regular rate and rhythm Lungs: clear to auscultation and normal air movement Airway: Mallampati scale class II Neurological: alert and oriented Last oral intake: >/= 8 hours ASA classification: II Emergent: no Anesthetic plan: proceed Anesthesia type and monitoring: general ETT Results Review: All pre-operative results and documents have been reviewed as part of the pre-operative evaluation. Informed Consent: The patient's anesthetic plan and its attendant risks and benefits were discussed with the patient/family/POA. Questions were solicited and answers provided to the satisfaction of the patient/family/POA.
[2021-11-02] VITALS (11 sets, daily range): BP systolic 93–117; BP diastolic 56–77; PULSE 54–74; RESP 12–16; TEMP 36.2–36.6; O2SAT 94–100
[2021-11-02] MEDS: ACETAMINOPHEN 500 MG TABLET 1000 MG PO (07:51)
[2021-11-02] MEDS: KETOROLAC 15 MG/ML VIAL (*BKC) IV PUSH (08:12)
[2021-11-02] MEDS: LACTATED RINGERS 1,000 ML 30 ML IV CONT ×2 (08:13→10:52)
--- NOTE | 2021-11-02 09:52 | PM.IMHP ---
H&P: HPI History of Present Illness Date/Time: 11/02/21 09:52 Chief Complaint: desires permanent sterilization Narrative: Patient is a para 3 and strongly desires permanent sterilization. She has been counseled multiple times regarding the permanence of procedure and discussed alternate lobsterman reversible options which she declines. She states partner declines vasectomy. She continues to want tubal sterilization. Review of Systems Review of Systems: All systems reviewed & are unremarkable except as noted in HPI and below Constitutional: Constitutional: Reports no additional constitutional complaints Eyes: Eyes: Reports no additional eye complaints Cardiovascular: Cardiovascular: Reports no additional cardiovascular complaints Respiratory: Respiratory: Reports no additional respiratory complaints Gastrointestinal: Gastrointestinal: Reports no additional gastrointestinal complaints Genitourinary: Genitourinary: Reports no additional female genitourinary complaints and Reports as per HPI Integumentary/Breasts: Skin/Breast: Reports system reviewed and no additional complaints, except as docu Neurologic: Reports system reviewed and no additional complaints, except as documented Psychiatric: Psychiatric: Reports no additional psychiatric complaints Hematologic/Lymphatic: Hematologic/Lymphatic: Reports no additional hematologic/lymphatic complaints PMFSH Past Medical History Medical History Chlamydia Depression (vaginal after ) x1 Surgical History Surgical History Hx of tonsillectomy Previous section x1 [place] teeth removed Family History Family History Grandparent Family history of malignant neoplasm of ovary Family history of malignant neoplasm of breast Family history of malignant neoplasm of uterus Agent orange exposure Mother Endometriosis Father Scoliosis Social History Social History Smoking status: Never smoker Second hand tobacco smoke exposure: Yes (MOM) Alcohol intake: former Substance use: former Substance use type: marijuana Last use: 1 YR AGO Living arrangements: with family Spiritual care concerns: No Meds Home Medications and Allergies Home Medications Medication Instructions Recorded Confirmed Type prenat.vits,lenny,fou-byrf-ozrbr 1 tablet PO DAILY 08/30/20 11/02/21 History acetaminophen 500 mg tablet 500 mg PO Q6H PRN Pain 10/25/21 11/02/21 History (Acetaminophen Extra Strength) Allergies Allergy/AdvReac Type Severity Reaction Status Date / Time No Known Allergies Allergy Verified 11/02/21 07:46 Vital Signs Vital Signs - 24 hr 11/02/21 07:34 Temperature 97.2 F L Pulse Rate 72 Respiratory Rate 16 Blood Pressure 109/72 Pulse Oximetry 100 Oxygen Delivery Room Air Exam Const: General: comfortable and no acute distress Orientation/consciousness: oriented to person, oriented to place and oriented to time Eyes: General: appearance normal, both eyes and all related structures Neck: Neck: normal visual inspection Resp: Effort & Inspection: normal respiratory effort Auscultation: clear to auscultation bilaterally Cardio: Rate: regular rate Rhythm: regular rhythm GI: Inspection: normal to inspection GI Palp: No abdominal tenderness and Yes No hepatosplenomegaly present : External Female Exam: normal external appearance Speculum Exam - Vagina: normal appearance of the vagina Speculum Exam - Cervix: normal appearance of the cervix Bimanual exam- vagina & uterus: normal bimanual exam, uterine mobility normal, uterine shape normal and non-tender Bimanual Exam- Adnexa, other: no masses and No adnexal tenderness Skin: General skin exam: normal color Neuro: General: oriented t
--- NOTE | 2021-11-02 09:55 | WPDHPUPDATE1 ---
History and Physical Update Update Date/Time: 11/02/21 09:55 History and Physical has been reviewed, including an updated exam of the patient. There are NO changes in the patient's condition. Risks, benefits, and alternatives have been discussed and questions answered. Patient agrees to proceed with procedure.
[2021-11-02] MEDS: BUPIVACAINE/EPINEPHRINE 0.25% 50 ML VIAL INFILTRATE (10:28)
--- NOTE | 2021-11-02 10:58 | W.PM.PROC2 ---
Procedure Note - Detailed Date of Procedure 11/02/21 Pre-op Diagnosis desires sterilization Post-op Diagnosis Same Procedure Performed Laparoscopic bilateral sterilization with fulguration. Surgeon Mk Quick MD Anesthesia General Indications Undesired fertility desired permanent sterilization. Findings Normal uterus fallopian tubes and ovaries bilaterally normal liver edge. Description of Procedure The patient was taken to the operating room, and under general anesthesia, placed in the dorsal lithotomy position, prepped and draped in the usual sterile fashion. attention was turned to the vagina. A bivalve speculum was inserted. Single-tooth tenaculum placed on anterior lip of the cervix. The acorn uterine manipulator was placed into the cervical canal and secured to the single-tooth tenaculum. Attention was then turned to the abdomen with new sterile gloves. 0.25% Marcaine with lidocaine was injected at the infraumbilical area. A 1 cm Horizontal infraumbilical skin incision was made. Through this a Veress needle was inserted into the abdominal cavity. confirmation into the abdomen obtained with normal free flow of fluid and normal peritoneal pressures. A pneumoperitoneum of 15 mm per mercury was obtained. The Veress needle was withdrawn. A trocar sleeve was placed through the incision into the abdominal cavity with laparoscopic visualization. 0.25% Marcaine with lidocaine was injected subcutaneous at the site. A 1 cm skin incision was made left of the midline. Through this a second trocar sleeve was placed into the abdominal cavity using direct observation with the laparoscope. The trocar was withdrawn and replaced with a probe. The patient was placed in Trendelenburg position. The bowel was displaced out of the pelvis. Upon visualization of the pelvis organs, the uterus, fallopian tubes and ovaries were all normal. The probe was withdrawn and replaced with the bipolar cautery instrument. The left fallopian tube was grasped approximately 1 cm distal to the cornual region of the uterus. Electrical current was applied to the tube at this point and fulgurated. This was done for approximately 2 cm segment.The same procedure was then carried out on the opposite tube. The bipolar cautery instrument was withdrawn and replaced with the probe. The upper abdomen was visualized, and the liver surface was normal. The gas was allowed to escape from the abdomen, and the instruments were removed. The skin incisions were repaired with 4 O Vicryl in a subcuticular fashion. Dermabond was placed. The instruments were removed from the vagina. A total of 12 cc of 0.25% Marcaine was injected at the incision sites. There were no complications to the procedure. Blood loss was minimal. The patient went to the postanesthesia recovery room in stable condition. Estimated Blood Loss 5 Drains No Packing No Pathology None sent Complications No immediate complications Condition Stable Disposition Same day [facility] Billing Surgery - Charge Forward: Surgery Billing
[2021-11-02] MEDS: fentaNYL CITRATE INJ (*CRX) 100 MCG/2 ML VIAL 25 MCG IV PUSH ×4 (11:28→11:48)
[2021-11-02] MEDS: diphenhydrAMINE HCl INJ 50 MG/ML VIAL 25 MG IV PUSH (12:41)
[2021-11-02] MEDS: oxyCODONE HCL (*CRX) 5 MG TAB IR PO (12:49)
--- NOTE | 2021-11-02 18:00 | SUR.PHASEII ---
Patient is and didn't bring supplies to the hospital to pump. RN called 2nd floor OB so patient could pump before discharge.
== END 2021-11-02 14:09 | disposition home or self-care (01) ==
PROVIDERS: PCP Family Medicine; Visit Provider Obstetrics & Gynecology
PROC: (CPT 58671; principal; 2021-11-02 09:30)
DX: Z30.2 Encounter for sterilization (principal)
CPT/HCPCS: 58670; A9270; J0330; J1100; J1200; J1885; J2250; J2405; J2704; J3010; J7120

== ENCOUNTER 2023-11-28 10:01 | Outpatient (CLI) | payer OTHER, SELFPAY | END 2023-11-28 10:02 | disposition home or self-care (01) | LOC: ANHLAB 10:03 | PROVIDERS: PCP Family Medicine; Visit Provider Nurse Practitioner Obstetrics & Gynecology | DX: N92.6 Irregular menstruation, unspecified (principal) | CPT/HCPCS: 36415; 84443 ==

== ENCOUNTER 2023-12-18 13:48 | Outpatient (CLI) | payer OTHER, SELFPAY ==
--- NOTE | ~2023-12-18 | US_ITS ---
EXAMINATION: US pelvic complete w TV DATE: 12/18/2023 14:51 INDICATION: Irregular menstruation, unspecified. TECHNIQUE: Multiple transabdominal and transvaginal sonographic images of the pelvis were obtained. COMPARISON: None. FINDINGS: TRANSABDOMINAL ULTRASOUND: The uterus measures 8.3 x 3.7 x 5.4 cm. There is physiologic free fluid in the pelvis. TRANSVAGINAL ULTRASOUND: The endometrial complex measures 7 mm in thickness. The right ovary measures 2.9 x 1.9 x 2.7 cm. The left ovary measures 2.5 x 2.0 x 3.6 cm. There is normal vascular flow in the ovaries. IMPRESSION: 1. Normal pelvis. Reviewed, dictated and finalized at location A. IMPRESSION: 1. Normal pelvis.
== END 2023-12-18 13:49 | disposition home or self-care (01) ==
LOC: ANHIMG 13:51
PROVIDERS: PCP Family Medicine; Visit Provider Nurse Practitioner Obstetrics & Gynecology
DX: N92.6 Irregular menstruation, unspecified (principal)
CPT/HCPCS: 76830; 76856